=== PATIENT | female | born 1945 | race Two or more races ===

== ENCOUNTER → 2022-03-16 14:31 | Outpatient (BNVA) | payer MEDICARE, SELFPAY | PROVIDERS: PCP Nurse Practitioner Gerontology; Visit Provider Student in an Organized Health Care Education/Training Program | DX: R76.8 Other specified abnormal immunological findings in serum (principal); R79.89 Other specified abnormal findings of blood chemistry | CPT/HCPCS: 99202 ==

== ENCOUNTER 2022-04-12 11:54 | Outpatient (REF) | payer MEDICARE, SELFPAY ==
[2022-04-14 15:32] LABS: Cardiolipin IgG Ab 3.9 GPL-U/mL; Cardiolipin IgM Ab 34.6 MPL-U/mL
== END 2022-04-12 11:55 | disposition home or self-care (01) ==
LOC: HO.LAB 11:54
PROVIDERS: PCP Nurse Practitioner Gerontology; Visit Provider Student in an Organized Health Care Education/Training Program
DX: G08 Intracranial and intraspinal phlebitis and thrombophlebitis (principal); R76.8 Other specified abnormal immunological findings in serum; R79.89 Other specified abnormal findings of blood chemistry; M65.331 Trigger finger, right middle finger; M60.9 Myositis, unspecified
CPT/HCPCS: 86147; 99212